=== PATIENT | male | born 1975 | race Hispanic/Latino ===

== ENCOUNTER 2016-11-11 21:48 | Emergency (ER) | payer OTHER ==
[~2016-11-11] VITALS: Ht 172.7 cm; Wt 90.9 kg
[~2016-11-11 21:48] MED LIST: HYDR-4003 PO
[2016-11-11 21:51] VITALS: BP 136/87; PULSE 76; RESP 16; O2SAT 97
--- NOTE | 2016-11-11 22:02 | ED.REPORT ---
HPI-Chest Pain 40 and Over Date of Service November 11, 2016 ED Provider: Mirza Clancy MD Patient is a 41 year old male who presents to the ED complaining of R sided rib pain onset today. His pain is exacerbated with movement and deep breathing. He denies chest pain, SOB, nausea, vomiting, fever, chills, cough, leg pain, ankle swelling, or any other symptoms. He has not had blood clots previously. He has not taken any medication for pain. Nursing Notes Stated Complaint: SIDE PAIN Chief Complaint: Male Abdominal Pain Nursing Notes Reviewed: Yes Allergies: Coded Allergies: No Known Allergies (Unverified Allergy, Unknown, 11/11/16) Scheduled PRN Hydrocodone-Acetaminophen 5-325 mg (Hydrocodone-Acetaminophen 5-325 mg) 1 Each Tablet 1 TABLET PO Q4H PRN PRN For Pain General Time Seen by MD: 22:00 Chief Complaint Other (Rib pain ) Hx Obtained From: Patient Arrived By: Walk-in Sudden in Onset?: Yes Onset Occurred: Onset unknown Risk Factors )( CAD Risk Stratification No Diabetes mellitus, No Hyperlipidemia, No Hypertension Risk factors reviewed )( TAD Risk Stratification No Hypertension, No Risk factors reviewed )( PE Risk Stratification No Coagulation Disorder, No Previous DVT, No Previous PE Risk factors reviewed Past Medical History Past Medical History cerebral palsy Smoking History Never Smoker Social History Alcohol Use: "Social" Drug Use: Denies drug use Ambulatory Status Independent Review of Systems Review of Systems Note: +R sided rib pain Constitutional: Denies: Chills, Fever Respiratory: Reports: Pleuritic pain, Denies: Non-productive cough Cardiovascular: Denies: Chest pain GI: Denies: Nausea, Vomiting Musculoskeletal: Denies: Extremity pain, Extremity swelling, Joint swelling Complete sys rev & neg: except as marked. Physical Exam Initial Vital Signs Vital Signs (First) Date Time Temp Pulse Resp B/P Pulse Ox O2 Delivery O2 Flow Rate FiO2 11/11/16 21:51 37.0 76 16 136/87 97 Room Air Initial VS: Reviewed, Vital signs normal Head / Eyes: Atraumatic, Normocephalic Neck: Full range of motion Skin: Warm, Dry Neurologic: Alert, Oriented, Nonfocal General/Constitutional: Awake, Alert, Well developed Respiratory / Chest: Breath sounds NL, Breath sounds = bilat, No respiratory distress no asymmetry or focal changes plueritic R chest wall pain tender to palpation Cardiovascular: Heart rate NL, Regular rhythm, Heart sounds NL, No gallop, No murmurs, No rubs Abdomen: Soft, Non-tender Neck: No JVD Lower Extremity / Pelvis / MS: No swelling, Non-tender, No edema Interpretation & Diagnostics Lab Results Interpretation Test 11/11/16 22:23 11/11/16 22:50 D-Dimer < 0.50mg/L FEU (<0.50) Hold Urine Received (Received) Hold Purple Top Tube Received (Received) Hold Blue Top Tube Received (Received) Hold Red Top Tube Received (Received) Hold Champion Top Tube Received (Received) Hold Tovar Top Tube Received (Received) Lab Results Interpretation: D-dimer normal ECG Interpretation ECG Interpretation: normal Sinus rate 67 Early repolarization pattern Time: 23:29 Interpreted by: ED physician X-Ray Chest Interpretation Chest Xray Interpretation: Normal xray View: AP & lat Interpretation / Wet Read by: Interpret - ED physician Re-Eval/Medical Decision Med Decision/Clinical Course 41-year-old male who has some localized right-sided chest wall tenderness consistent with costochondritis. Chest x-ray, EKG, and d-dimer are all negative. Time of Eval: 23:16 Re-Evaluation/Progress Note: Rechecked pt. Discussed lab and imaging results. Discussed plan for discharge. Patient understands and agrees with plan. All questions addressed at this time. Counseled Regarding: Diagnosis, Lab results, Need for follow-up, When/why to return to ED Discharge & Departure Primary Impression: Costochondritis Disposition: Home Discharge Condition All VS Reviewed: Yes Condition: Stable Patient Instructions: Costochondritis (ED) Additional Instructions: Your rib pain appears to be from costochondritis, and inflammation of the rib joints. Chest x-ray and EKG are normal. The d-dimer tests is negative for any blood clots. There does not appear to be anything more serious going on. Ibuprofen 400-600 mg 3-4 times daily, to be purchased [id number]. Referrals: Sasha Carracso MD (PCP) Scribe Attestation Portions of this note were transcribed by Arlin Higuera. I, Dr. Clancy personally performed the history, physical exam and medical decision-making; I reviewed and confirmed the accuracy of the information in the transcribed note. Signed by: Arlin Higuera 11/11/16, 2317 copies to: Sasha Carrasco MD, Howard L MD November 11, 2016 22:02 ARLIN HIGUERA November 11, 2016 22:04
[2016-11-11 22:21] VITALS: BP 117/65; PULSE 73; RESP 19; O2SAT 97
[2016-11-11 23:37] VITALS: BP 109/60; PULSE 69; RESP 15; O2SAT 98
--- NOTE | 2016-11-12 07:43 | DRSVH ---
PROCEDURE: X-RAY CHEST, TWO VIEWS ([id number]) INDICATIONS: right side pleuritic chest pain TECHNIQUE: 2 views of the chest were acquired. COMPARISON: [facility], CR, XR CHEST 2VW, 12/07/2015, 17:06. FINDINGS: Surgical changes and devices: None. Lungs and pleura: No pleural effusions or pneumothorax. Mild patchy opacity at the left lung base. Mediastinum: Mediastinal contours are normal. Heart size is normal. Bones and chest wall: No suspicious bony abnormalities. Soft tissues appear unremarkable. IMPRESSION: Left base atelectasis versus pneumonia. Dictated by: Ross Abdullahi M.D. on 11/12/2016 at 7:41 Approved by: Ross Abdullahi M.D. on 11/12/2016 at 7:42
== END 2016-11-11 23:43 | disposition home or self-care (01) ==
LOC: SED 21:48
DX: M94.0 Chondrocostal junction syndrome [Tietze] (principal); G80.9 Cerebral palsy, unspecified; Z86.69 Personal history of other diseases of the nervous system and sense organs